=== PATIENT | female | born 1985 | race African-American/Black ===

== ENCOUNTER 2017-06-08 22:13 | Emergency (ER) | payer OTHER ==
[~2017-06-08] VITALS: Ht 152.4 cm; Wt 70.8 kg
[2017-06-08 22:14] VITALS: BP 134/80
== END 2017-06-08 22:59 | disposition home or self-care (01) ==
LOC: ER 22:13
DX: K64.5 Perianal venous thrombosis (principal); F10.99 Alcohol use, unspecified with unspecified alcohol-induced disorder; Z87.891 Personal history of nicotine dependence